=== PATIENT | male | born 1980 | race Caucasian/White ===

== ENCOUNTER 2018-06-22 22:08 | Inpatient (IN) | payer OTHER ==
[2018-06-22 22:12] VITALS: BMI 33.5
[2018-06-22] MEDS ORDERED: NITROGLYCERIN 2% OINTMENT - 1GM PACKET TD ONE (22:36)
--- NOTE | 2018-06-22 22:40 | PDOC ---
History of Present Illness - General Chief Complaint: Chest Pain Stated Complaint: CHEST PAIN Time Seen by Provider: 06/22/18 22:24 History Source: Patient - History of Present Illness Initial Comments: 06/22/18 22:36 The patient is a 38 year old Estonian speaking male with no significant reported PMH who presents to our ED tonight c/o 1 day h/o chest pain. Pain is intermittent, pressure like, and lasts 5-10 minutes. Associated with shortness of breath and L arm tingling. Denies lightheadedness, palpitations, diaphoresis. H/o of pain last year but it was less severe. No previous cardiac evaluation. H/o smoking 12-13 cigarettes daily since age 16. No known family cardiac history. Denies leg swelling, recent travel. 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 No reported family cardiac history. NKDA Surgical: circumcision Social: daily cigarettes, denies other toxic habits PMD: cannot recall name Past History - Past Medical History Allergies/Adverse Reactions: Allergies Allergy/AdvReac Type Severity Reaction Status Date / Time No Known Allergies Allergy Verified 06/22/18 22:12 Home Medications: Ambulatory Orders No Home Medications 09/14/11 COPD: No - Immunization History Immunization Up to Date: Yes - Suicide/Smoking/Psychosocial Hx Smoking Status: No Smoking History: Never smoked Years of Tobacco Use: 12 Number of Cigarettes Smoked Daily: 20 Drug/Substance Use Hx: No Substance Use Type: None Review of Systems - Review of Systems Constitutional: No: Chills, Fever HEENTM: No: Blurred Vision, Recent change in vision Respiratory: Yes: Shortness of Breath. No: Cough, Wheezing Cardiac (ROS): Yes: Chest Pain. No: Lightheadedness, Palpitations, Syncope ABD/GI: No: Constipated, Diarrhea, Nausea, Vomiting *Physical Exam - Vital Signs Last Vital Signs Temp Pulse Resp BP Pulse Ox 98.4 F 100 H 20 149/103 H 100 06/22/18 22:10 06/22/18 22:10 06/22/18 22:10 06/22/18 22:10 06/22/18 22:10 - Physical Exam General Appearance: Yes: Nourished, Appropriately Dressed HEENT: positive: Normal Voice, Hearing Grossly Normal Neck: positive: Trachea midline, Supple Respiratory/Chest: positive: Lungs Clear, Normal Breath Sounds Cardiovascular: positive: S1, S2. negative: Edema, JVD, Murmur Gastrointestinal/Abdominal: positive: Normal Bowel Sounds, Soft Musculoskeletal: negative: CVA Tenderness (R), CVA Tenderness (L) Extremity: positive: Normal Capillary Refill, Normal Inspection Integumentary: positive: Normal Color, Dry, Warm Heart Score/ECG Review - ECG Impressions Comment:: 06/22/18 22:52 NSR HR 93, no KASSIDY/STD/TWI - non-ischemic EKG ED Treatment Course - LABORATORY CBC & Chemistry Diagram: 06/22/18 23:00 06/22/18 23:00 - RADIOLOGY Radiology Studies Ordered: Category Date Time Status CHEST X-RAY PORTABLE* [RAD] Stat Radiology 06/22/18 22:34 Ordered Medical Decision Making - Medical Decision Making 06/22/18 22:42 38 year old male with chest pain. Initially tachycardic (HR 100) and hypertensive Repeat BP 131/94, HR 88. Frontal diagnosis: r/o ACS, costochondritis, MSK, esophageal spasm. 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 Will obtain Troponin, EKG, CXR, CBC/CMP. Cardiac monitoring. Reassess. 06/22/18 22:51 EKG non-ischemic as documented in EKG section of EMR Heart Score 2 06/22/18 23:49 Patient reassessed @ bedside VSS No active chest pain, resting comfortably 06/22/18 23:51 My read of CXR shows no consolidation/infiltrate, ? mild cardiomegaly, formal read pending 06/22/18 23:52 CBC, CMP unremarkable Troponin (-) x1 D-Dimer pending 06/22/18 23:57 D-Dimer negative 06/23/18 01:30 Patient counseled on importance of smoking cessation and plan of care including repeat Troponin. 06/23/18 01:45 Patient to be signed out to Dr. Trevino (Resident) and Dr. Bae (Attending) for further evaluation. Likely disposition is home. Pending Clinical Impression: Chest Pain possibly 2/2 to MSK *DC/Admit/Observation/Transfer Diagnosis at time of Disposition: Chest pain - Discharge Dispostion Disposition: HOME Condition at time of disposition: Good Decision to Admit order: No - Referrals Referrals: Cristóbal Addison MD [Staff Physician] - - Patient Instructions Printed Discharge Instructions: DI for Atypical Chest Pain Additional Instructions: You were evaluated today for your chest pain. All of your labs, a chest x-ray and an EKG showed no concerning findings. At this time you are safe for discharge home. Please make an appointment for further evaluation with your primary care doctor in the next 3 days. We have provided a referral to a primary care doctor or your can call your insurance company for a list of doctors. You can take Tylenol (up to 4000 mg daily) alternating with Motrin (up to 3200 mg daily) for your pain until you are evaluated by your primary care doctor. Return to the Emergency Department for any new/worsening/concerning symptoms including severe chest pain, shortness of breath. - Post Discharge Activity
[2018-06-22 23:23] LABS: HEMATOCRIT 44.5 % (35.4-49); HEMOGLOBIN 15.6 GM/dL (11.7-16.9); MCH 32.7 pg (25.7-33.7); MCHC 35.2 g/dl (32.0-35.9); MEAN PLT VOLUME 10.1 fl (7.5-11.1); PLATELET COUNT 268 K/MM3 (134-434); RBC 4.78 M/mm3 (4.00-5.60); RDW 13.8 % (11.9-15.9)
[2018-06-22 23:42] LABS: INR 1.09 (0.83-1.09); PROTHROMBIN TIME (PATIENT) 12.9 SEC (9.7-13.0)
[2018-06-22 23:44] LABS: ACTIVATED PTT 38.8 SECONDS (25.2-36.5)
[2018-06-22 23:48] LABS: ALBUMIN 3.8 g/dl (3.4-5.0); ALK PHOS 110 U/L (45-117); ANION GAP 5 MMOL/L (8-16); BILIRUBIN,TOTAL 0.2 mg/dL (0.2-1); BLOOD UREA NITROGEN 10 mg/dL (7-18); CALCIUM 8.4 mg/dL (8.5-10.1); CHLORIDE 104 mmol/L (98-107); CO2 28 mmol/L (21-32); CREATININE 0.7 mg/dL (0.55-1.3); GLUCOSE,RANDOM 159 mg/dL (74-106); N-TERMINAL BNP 7.7 pg/ml (5-125); POTASSIUM 4.1 mmol/L (3.5-5.1); SGOT/AST 17 U/L (15-37); SGPT/ALT 34 U/L (13-61); SODIUM 137 mmol/L (136-145); TOT PROT 7.4 g/dl (6.4-8.2)
--- NOTE | 2018-06-23 00:48 | PDOC ---
Documentation entered by José Bernabe SCRIBE, acting as scribe for Simone Rivas MD. Attending Attestation - Resident Resident Name: Blanka Mckeon - ED Attending Attestation I have performed the following: I have examined & evaluated the patient, The case was reviewed & discussed with the resident, I agree w/resident's findings & plan, Exceptions are as noted - HPI HPI: 06/22/18 23:26 Patient is a 38 year old male with no significant past medical history who presents to the ED with complaints of left sided chest pain that began 1 day ago. 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 He reports experiencing associated symptoms of left arm tingling when he has the chest pain. He denies any chest pain at this time. Had similar sxs 1 year ago that resolved. Did not seek care then. Denies a trigger for the pain. Denies associated SOB, dizziness, N/V, diaphoresis. Pt is daily smoker. Denies sig family hx cardiac disease. Denies trauma to the chest. Denies headache, focal weakness/numbness. Denies fevers, chills, coughing. Denies diarrhea, constipation. Denies dysuria, hematuria. Denies sick contacts. Allergies: None Social history: [employer] driver. Current smoker 13 cigarettes per day. No illicit drugs. No alcohol. Surgical history: None PMD: Unknown - Physicial Exam PE: 06/23/18 00:43 GENERAL: Awake, alert, and fully oriented, in no acute distress. Well appearing , sleeping comfortably in stretcher HEAD: No signs of trauma EYES: PERRLA, EOMI, sclera anicteric, conjunctiva clear ENT: Oropharynx clear without exudates. Moist mucosa NECK: Normal ROM, supple, no lymphadenopathy, JVD, or masses LUNGS: Breath sounds equal, clear to auscultation bilaterally. No wheezes, and no crackles HEART: Regular rate and rhythm, normal S1 and S2, no murmurs, rubs or gallops ABDOMEN: Soft, nontender, normoactive bowel sounds. No guarding, no rebound. No masses EXTREMITIES: Normal range of motion, no edema. No cords, erythema, or tenderness NEUROLOGICAL: Normal speech, cranial nerves intact, equal strength and sensation b/l SKIN: Warm, Dry, normal turgor, no rashes or lesions noted. - Medical Decision Making 06/23/18 00:44 38yo M with no sig PMH presents to the ED with LSCP with L arm tingling intermittently for 24hrs. Vitals initially with elevated BP but on rpt by Dr. Mckeon upon arrival, BP normalized without intervention. Exam wnl. DDx includes ACS vs PE vs PNA vs MSK pain. Pt is low risk for ACS, heart score is 2, reasonable to do tropx2 Pt is low risk for PE, but does not meet PERC criteria as HR on arrval was 100. WIll check dimer Pt has no infectious sxs concerning for PNA, but will check CXR to r/o infiltrates No CP so far while in ED, will reassess Heart Score/ECG Review - History History: Moderately suspicious - Electrocardiogram EKG: Normal - Age Age: </= 45 - Risk Factors Based on the list above the patient has:: 1-2 risk factors - Troponin Troponin: </= normal limit - Score Heart Score - Total: 2 #1 06/23/18 00:45 Twelve-lead EKG was performed and reviewed by me. Normal sinus rhythm, rate 93. Normal axis and intervals. No ST elevations or T-wave inversions. Simone Rivas MD: This documentation has been prepared by the Florecita quigley Matthew, SCRIBE, under my direction and personally reviewed by me in its entirety. I confirm that the documentation accurately reflects all work, treatment, procedures, and medical decision making performed by me.
[2018-06-23] MEDS ORDERED: ASPIRIN 325 MG TABLET PO ONE (03:23)
--- NOTE | 2018-06-23 03:27 | PDOC ---
*Physical Exam - Vital Signs Last Vital Signs Temp Pulse Resp BP Pulse Ox 98.4 F 100 H 20 149/103 H 100 06/22/18 22:10 06/22/18 22:10 06/22/18 22:10 06/22/18 22:10 06/22/18 22:10 ED Treatment Course - LABORATORY CBC & Chemistry Diagram: 06/22/18 23:00 06/22/18 23:00 - ADDITIONAL ORDERS Additional order review: Laboratory Results 06/23/18 06/22/18 06/22/18 02:30 23:44 23:00 PT with INR INR PTT (Actin FS) D-Dimer 492 Sodium 137 Potassium 4.1 Chloride 104 Carbon Dioxide 28 Anion Gap 5 L BUN 10 Creatinine 0.7 Creat Clearance w eGFR 126.21 Random Glucose 159 H Calcium 8.4 L Total Bilirubin 0.2 AST 17 ALT 34 Alkaline Phosphatase 110 Creatine Kinase 59 53 Troponin I 0.18 H < 0.02 B-Natriuretic Peptide 7.7 Total Protein 7.4 Albumin 3.8 06/22/18 23:00 PT with INR 12.90 INR 1.09 PTT (Actin FS) 38.8 H D-Dimer Sodium Potassium Chloride Carbon Dioxide Anion Gap BUN Creatinine Creat Clearance w eGFR Random Glucose Calcium Total Bilirubin AST ALT Alkaline Phosphatase Creatine Kinase Troponin I B-Natriuretic Peptide Total Protein Albumin 06/22/18 23:00 RBC 4.78 MCV 93.0 MCHC 35.2 RDW 13.8 MPV 10.1 - Medications Given in the ED: ED Medications Discontinued Medications Generic Name Dose Route Start Last Admin Trade Name Freq PRN Reason Stop Dose Admin Nitroglycerin 1 inch 06/22/18 22:36 06/22/18 22:44 Nitro-Bid 2% Paste - TD 06/22/18 22:37 1 inch ONCE ONE Administration Medical Decision Making - Medical Decision Making Patient signed out to me pending 2nd trop as first trop was negative. 2nd trop is positive at 0.12 will admit to Telemetry for chest pain. *DC/Admit/Observation/Transfer Diagnosis at time of Disposition: Chest pain, Elevated troponin I level - Discharge Dispostion Condition at time of disposition: Stable Decision to Admit order: Yes - Referrals Referrals: Cristóbal Addison MD [Staff Physician] - - Patient Instructions Printed Discharge Instructions: DI for Atypical Chest Pain, DI for Chest Pain Additional Instructions: You were evaluated today for your chest pain. All of your labs, a chest x-ray and an EKG showed no concerning findings. At this time you are safe for discharge home. Please make an appointment for further evaluation with your primary care doctor in the next 3 days. We have provided a referral to a primary care doctor or your can call your insurance company for a list of doctors. You can take Tylenol (up to 4000 mg daily) alternating with Motrin (up to 3200 mg daily) for your pain until you are evaluated by your primary care doctor. Return to the Emergency Department for any new/worsening/concerning symptoms including severe chest pain, shortness of breath. - Post Discharge Activity
[2018-06-23] MEDS ORDERED: TICAGRELOR 90 MG TABLET PO SCH ×2 (04:36→10:00)
[2018-06-23] MEDS ORDERED: ENOXAPARIN NA (PORCINE) 40 MG/0.4 ML DISP.SYRIN SQ ONE (04:36)
[2018-06-23] MEDS ORDERED: NITROGLYCERIN SUBLINGUAL 1/150 0.4 MG TAB SL PRN (04:37)
--- NOTE | 2018-06-23 04:44 | HP ---
CHIEF COMPLAINT: chest pain PCP: none currently HISTORY OF PRESENT ILLNESS: Patient is a 38 y/o M w/ no known PMHx p/w intermittent pressure-like L-sided chest pain radiating to L arm x 1 day, coming and going in 5-10 minute waves, no clear inciting factor, a/w dyspnea and tingling sensation in L arm. ROS otherwise negative. 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 Afebrile on presentation w/ HR 100 and BP 149/103 Received loading dose ASA and nitro paste in ED, pain resolved with nitro and vitals resolved to HR 80 and BP 128/93. Maintaining saturation. No complaints at time of encounter. Labs significant for glucose 159, negative 1st troponin, 2nd troponin positive to 0.18. Initial EKG showing NSR w/o abnormality , 2nd EKG currently pending. ER course was notable for: (1) initial troponin negative, 2nd troponin 0.18 (2) initial EKG benign, 2nd EKG pending (3) glucose 159 Recent Travel: none PAST MEDICAL HISTORY: As per [facility] PAST SURGICAL HISTORY: none Social History: Smoking: Daily, >20 pack-years Alcohol: no Drugs: no Family History: Allergies No Known Allergies Allergy (Verified 06/22/18 22:12) HOME MEDICATIONS: Home Medications Medication Instructions Recorded No Home Medications 09/14/11 REVIEW OF SYSTEMS as per [facility] PHYSICAL EXAMINATION Vital Signs - 24 hr 06/22/18 22:10 Temperature 98.4 F Pulse Rate 100 H Respiratory 20 Rate Blood Pressure 149/103 H O2 Sat by Pulse 100 Oximetry (%) GENERAL: A&Ox3, NAD HEENT: NC/AT, PERRLA, EOMI, MMM, anicteric, xanthelasma overlying eyes b/l NECK: Normal range of motion, supple without lymphadenopathy, JVD, or masses, + acanthosis nigricans along skin folds LUNGS: CTA b/l HEART: RRR no m/r/g ABDOMEN: +bs, soft, NT, ND MUSCULOSKELETAL: Normal range of motion at all joints. No bony deformities or tenderness. No CVA tenderness, no reproducible chest pain UPPER EXTREMITIES: 2+ pulses, warm, well-perfused. No cyanosis. No clubbing. No peripheral edema. LOWER EXTREMITIES: 2+ pulses, warm, well-perfused. No calf tenderness. No peripheral edema. NEUROLOGICAL: health insurance agent, motor, sensory systems w/o focal deficit PSYCHIATRIC: Cooperative. Good eye contact. Appropriate mood and affect. SKIN: Warm, dry, normal turgor, no rashes or lesions noted, normal capillary refill. Laboratory Results - last 24 hr 06/22/18 06/22/18 06/22/18 23:00 23:00 23:00 WBC 10.0 RBC 4.78 Hgb 15.6 Hct 44.5 MCV 93.0 MCH 32.7 MCHC 35.2 RDW 13.8 Plt Count 268 D MPV 10.1 PT with INR 12.90 INR 1.09 PTT (Actin FS) 38.8 H D-Dimer Sodium 137 Potassium 4.1 Chloride 104 Carbon Dioxide 28 Anion Gap 5 L BUN 10 Creatinine 0.7 Creat Clearance w eGFR 126.21 Random Glucose 159 H Calcium 8.4 L Total Bilirubin 0.2 AST 17 ALT 34 Alkaline Phosphatase 110 Creatine Kinase 53 Troponin I < 0.02 B-Natriuretic Peptide 7.7 Total Protein 7.4 Albumin 3.8 06/22/18 06/23/18 23:44 02:30 WBC RBC Hgb Hct MCV MCH MCHC RDW Plt Count MPV PT with INR INR PTT (Actin FS) D-Dimer 492 Sodium Potassium Chloride Carbon Dioxide Anion Gap BUN Creatinine Creat Clearance w eGFR Random Glucose Calcium Total Bilirubin AST ALT Alkaline Phosphatase Creatine Kinase 59 Troponin I 0.18 H B-Natriuretic Peptide Total Protein Albumin ASSESSMENT/PLAN: 38 y/o M w/ no known PMHx p/w intermittent pressure-like L-sided chest pain radiating to L arm x 1 day, no EKG changes as yet, positive second troponin, admitted for presumed NSTEMI. #A: -NSTEMI -probable HLD -possible DM #P: -trend troponins, EKG -cardiology consulted -lipid studies -A1c -follow BMP, Mg, Phos -ASA, Brilinta -FOBT -therapeutic dose Lovenox, can consider heparin gtt -NTG SL PRN for anginal pain -may need emergent cath if pain recurs -no IVF -cardiac diet -full code -admit to telemetry Visit type - Emergency Visit Emergency Visit: Yes ED Registration Date: 06/23/18 Care time: The patient presented to the Emergency Department on the above date and was hospitalized for further evaluation of their emergent condition. - New Patient This patient is new to me today: Yes Date on this admission: 06/23/18 - Critical Care Critical Care patient: No
[2018-06-23] MEDS ORDERED: ASPIRIN 325 MG TABLET ONE (04:46)
[2018-06-23] MEDS ORDERED: ENOXAPARIN NA (PORCINE) 100 MG/1 ML DISP.SYRIN SQ ONE (04:46)
--- NOTE | 2018-06-23 04:47 | PN ---
Teaching Attending Note Name of Resident: Regulo Richardson ATTENDING PHYSICIAN STATEMENT I saw and evaluated the patient. I reviewed the resident's note and discussed the case with the resident. I agree with the resident's findings and plan as documented. CC: chest pain SUBJECTIVE: He is a 38 Y/O M W obesity, HLD, Heavy smoker since the age of 12, no medical evaluation, sedentary life style, P/W sudden onset, severe left arm pain, accompanied with left sided chest pain, intermittent each episode lasting for couple of minutes, returning after 5-10 minutes, no aggravating, no alleviating factor. States that he has not been walking that much for months so can not give us clear ET. the episode started a 9 pm and first labs were sent at 9:30 pm. She states that the complaint resolved with the nitro paste. He complains of SOB and palpitation with out lightheadedness, n/v. Objective: Young M in no distress at this time MMM has xantelasma obses S1S2,regular, no M/G CTAB Abd:BS +, 2+ tp b/l equal EXT: warm no edema. CBCD WBC 10.0 K/mm3 (4.0-10.0) 06/22/18 23:00 RBC 4.78 M/mm3 (4.00-5.60) 06/22/18 23:00 Hgb 15.6 GM/dL (11.7-16.9) 06/22/18 23:00 Hct 44.5 % (35.4-49) 06/22/18 23:00 MCV 93.0 fl (80-96) 06/22/18 23:00 MCHC 35.2 g/dl (32.0-35.9) 06/22/18 23:00 RDW 13.8 % (11.9-15.9) 06/22/18 23:00 Plt Count 268 K/MM3 (134-434) D 06/22/18 23:00 MPV 10.1 fl (7.5-11.1) 06/22/18 23:00 CMP Sodium 137 mmol/L (136-145) 06/22/18 23:00 Potassium 4.1 mmol/L (3.5-5.1) 06/22/18 23:00 Chloride 104 mmol/L (98-107) 06/22/18 23:00 Carbon Dioxide 28 mmol/L (21-32) 06/22/18 23:00 Anion Gap 5 MMOL/L (8-16) L 06/22/18 23:00 BUN 10 mg/dL (7-18) 06/22/18 23:00 Creatinine 0.7 mg/dL (0.55-1.3) 06/22/18 23:00 Creat Clearance w eGFR 126.21 (>60) 06/22/18 23:00 Random Glucose 159 mg/dL (74-106) H 06/22/18 23:00 Calcium 8.4 mg/dL (8.5-10.1) L 06/22/18 23:00 Total Bilirubin 0.2 mg/dL (0.2-1) 06/22/18 23:00 AST 17 U/L (15-37) 06/22/18 23:00 ALT 34 U/L (13-61) 06/22/18 23:00 Alkaline Phosphatase 110 U/L (45-117) 06/22/18 23:00 Total Protein 7.4 g/dl (6.4-8.2) 06/22/18 23:00 Albumin 3.8 g/dl (3.4-5.0) 06/22/18 23:00 CARDIAC ENZYMES Creatine Kinase 59 U/L (26-308) 06/23/18 02:30 Troponin I 0.18 ng/ml (0.00-0.05) H 06/23/18 02:30 EKG reviewed: no ST changes on the 1st EKG, 2nd EKG pending ASSESSMENT AND PLAN: 38 Y/O M W multiple cardiovascular risk factors P/W episode of Left sided chest pain and shortness of breath Typical anginal chest pain in patient with RF and no baseline ET wiht positive troponin: will admit and shledon for NSTEMI at this time F/U EKG, troponin has no CP at this time Load with aspirin 162, ticagrelor, atorvastatin 80 mg F/u A1C, Lipid panel cardiology consult TTE will need cardiac cath, non urgent at this time. He was educated to inform us in case of recurrence of her chest pain HLD: will send lipid panel, start on statin. ISAIAH
[2018-06-23 08:25] LABS: BASO % 0.8 % (0-2.0); EOS % 0.9 % (0-4.5); HEMATOCRIT 44.8 % (35.4-49); HEMOGLOBIN 15.7 GM/dL (11.7-16.9); LYMPH % 24.2 % (8-40); MCH 32.2 pg (25.7-33.7); MCHC 35.1 g/dl (32.0-35.9); MEAN CELL VOLUME 91.6 fl (80-96); MEAN PLT VOLUME 9.5 fl (7.5-11.1); MONO % 6.1 % (3.8-10.2); PLATELET COUNT 255 K/MM3 (134-434); RBC 4.89 M/mm3 (4.00-5.60); RDW 13.9 % (11.9-15.9); WHITE BLOOD COUNT 8.5 K/mm3 (4.0-10.0)
[2018-06-23 08:45] LABS: ANION GAP 4 MMOL/L (8-16); BLOOD UREA NITROGEN 7 mg/dL (7-18); CALCIUM 8.7 mg/dL (8.5-10.1); CHLORIDE 106 mmol/L (98-107); CHOLESTEROL 209 mg/dL (50-200); CO2 29 mmol/L (21-32); CREATININE 0.7 mg/dL (0.55-1.3); GLUCOSE,RANDOM 117 mg/dL (74-106); HDL CHOLESTEROL 39 mg/dL (40-60); MAGNESIUM 2.2 mg/dL (1.8-2.4); PHOSPHOROUS 2.1 mg/dL (2.5-4.9); SODIUM 140 mmol/L (136-145); TRIGLYCERIDES 124 mg/dL (0-150)
[2018-06-23] MEDS ORDERED: NAPH,MB-DB/K PH,MBDB POWDER PACKET PO ONE ×2 (09:00→15:30)
--- NOTE | 2018-06-23 09:02 | CON.CARD ---
Consult Consult Specialty:: Cardiology Referred by:: Hospitalist Reason for Consultation:: Cardiac evaluation - History of Present Illness Chief Complaint: Chest pain History of Present Illness: Patient is a 38 year old male with no significant PMH who presented with intermittent mid sternal chest discomfort radiating to left arm. He complains of dyspnea and pain in the left forearm. He denies SOB or palpitations. He denies paroxysmal nocturnal dyspnea or orthopnea. He denies fever or chills. He denies nausea, vomiting, diarrhea or abdominal pain. 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 Troponin was slightly elevated to 0.18. - History Source History Provided By: Patient, Medical Record Limitations to Obtaining History: No Limitations - Smoking History Smoking history: Never smoked Aproximately how many cigarettes per day: 20 Home Medications - Allergies Allergies/Adverse Reactions: Allergies Allergy/AdvReac Type Severity Reaction Status Date / Time No Known Allergies Allergy Verified 06/22/18 22:12 - Home Medications Home Medications: Ambulatory Orders NK [No Known Home Medication] 06/23/18 Family Disease History - Family Disease History Other Family History: history of heart disease Review of Systems - Review of Systems Constitutional: denies: Chills, Fever Cardiovascular: reports: Chest Pain. denies: Palpitations, Shortness of Breath Respiratory: denies: Cough, Hemoptysis, Orthopnea, SOB, SOB on Exertion Gastrointestinal: denies: Abdominal Pain, Constipation, Diarrhea, Melena, Nausea , Rectal Bleeding, Vomiting Genitourinary: denies: Dysuria, Hematuria Musculoskeletal: denies: Back Pain, Joint Pain Neurological: denies: Dizziness, Headache, Seizure, Syncope Vital Signs: Vital Signs Temperature 98.3 F 06/23/18 07:10 Pulse Rate 76 06/23/18 07:10 Respiratory Rate 18 06/23/18 07:10 Blood Pressure 136/100 06/23/18 07:10 O2 Sat by Pulse Oximetry (%) 97 06/23/18 07:10 Eyes: Yes: PERRL HENT: Yes: Atraumatic Neck: Yes: Supple Respiratory: Yes: CTA Bilaterally Gastrointestinal: Yes: Normal Bowel Sounds, Soft. No: Tenderness Cardiovascular: Yes: Regular Rate and Rhythm JVD: No Carotid Bruit: No PMI: Non-Displaced Heart Sounds: Yes: S1, S2 Murmur: No: Systolic Murmur, Diastolic Murmur Edema: No - Other Data Labs, Other Data: CBC, BMP 06/23/18 07:57 06/23/18 07:57 INR, PTT INR 1.09 (0.83-1.09) 06/22/18 23:00 Troponin, BNP 06/22/18 06/23/18 06/23/18 23:00 02:30 07:57 Troponin I < 0.02 0.18 H 0.13 H B-Natriuretic Peptide 7.7 NSR and normal ECG Echo: Report Reviewed (Normal LV systolic function, impaired relaxation) Imaging - Results Chest X-ray: Report Reviewed (Slight increase in central marking) EKG: Report Reviewed Problem List - Problems (1) Chest pain Code(s): R07.9 - CHEST PAIN, UNSPECIFIED (2) Elevated troponin I level Code(s): R74.8 - ABNORMAL LEVELS OF OTHER SERUM ENZYMES (3) Hyperglycemia Code(s): R73.9 - HYPERGLYCEMIA, UNSPECIFIED Assessment/Plan 1. Chest pain syndrome with mild elevation of troponin suggest underlying CAD 2. Hyperglycemia 3. ? Hypercholesterolemia PLAN: 1. Troponin level noted trending down 2. Discontinue Brilinta. Continue ASA 81 mg QD 3. Add low dose beta merline as tolerated 4. Lipid panel and statin if indicated 5. Echocardiography noted 6. Consider stress echocardiography Further plans are to follow Buck Winter MD
[2018-06-23] MEDS: ASPIRIN COATED 81 MG TABLET.EC PO SCH (10:28)
--- NOTE | 2018-06-23 11:06 | EKG ---
Test Reason : Blood Pressure : / mmHG Vent. Rate : 093 BPM Atrial Rate : 093 BPM P-R Int : 136 ms QRS Dur : 098 ms QT Int : 346 ms P-R-T Axes : 044 020 046 degrees QTc Int : 430 ms NORMAL SINUS RHYTHM NORMAL ECG WHEN COMPARED WITH ECG OF 05-AUG-2009 00:55, NO SIGNIFICANT CHANGE WAS FOUND Confirmed by MD Park Edward ([id number]) on 06/23/2018 11:06:04 AM Referred By: Confirmed By:Ahsan Park MD
--- NOTE | 2018-06-23 11:09 | EKG ---
Test Reason : Blood Pressure : / mmHG Vent. Rate : 075 BPM Atrial Rate : 075 BPM P-R Int : 122 ms QRS Dur : 106 ms QT Int : 354 ms P-R-T Axes : 001 -12 053 degrees QTc Int : 395 ms NORMAL SINUS RHYTHM NONSPECIFIC T WAVE ABNORMALITY ABNORMAL ECG WHEN COMPARED WITH ECG OF 22-JUN-2018 22:09, NONSPECIFIC T WAVE ABNORMALITY NOW EVIDENT IN ANTERIOR LEADS Confirmed by MD Vivian, Ahsan ([id number]) on 06/23/2018 11:09:08 AM Referred By: Confirmed By:Ahsan Park MD
--- NOTE | 2018-06-23 11:24 | ECHO ---
Version: 1 Name: YESSY SWENSON Exam: Adult Echocardiogram Study Date: 06/23/2018, 8:14 AM Age: 38 Years MMode/2D Measurements & Calculations IVSd: 0.85 cm LVIDs: 3.7 cm LVIDd: 5.4 cm LVPWd: 0.79 cm LVOT diam: 2.00 cm Ao root diam: 2.6 cm LA dimension: 3.2 cm Doppler Measurements & Calculations MV E max yifan: 52.8 cm/sec Med E/e': 4.3 MV A max yifan: 60.7 cm/sec Med Peak E' Yifan: 12.4 cm/sec MV E/A: 0.87 Lat E/e': 4.7 Lat Peak E' Yifan: 11.2 cm/sec Ao max P.9 mmHg Ao mean P.2 mmHg Ao V2 max: 121.6 cm/sec Procedure A two-dimensional transthoracic echocardiogram with color flow and Doppler was performed. The patien t was in normal sinus rhythm during the exam. Left Ventricle The left ventricular size, thickness and function are normal. Ejection Fraction = 55. Grade I diasto lic dysfunction, (abnormal relaxation pattern). Right Ventricle The right ventricle is normal in size and function. Atria Normal left and right atrial size and function. Mitral Valve The mitral valve is grossly normal. There is trace mitral regurgitation. Tricuspid Valve The tricuspid valve is not well visualized, but is grossly normal. There is trace tricuspid regurgit ation. There was insufficient TR detected to calculate RV systolic pressure. Aortic Valve The aortic valve is trileaflet. No hemodynamically significant valvular aortic stenosis. No aortic regurgitation is present. Pulmonic Valve The pulmonic valve is not well visualized. Great Vessels The aortic root is normal size. Pericardium/Pleura There is no pericardial effusion. Summary Statements The left ventricular size, thickness and function are normal Grade I diastolic dysfunction, (abnormal relaxation pattern). There is trace mitral regurgitation. There is trace tricuspid regurgitation. There was insufficient TR detected to calculate RV systolic pressure. No hemodynamically significant valvular aortic stenosis. MD Ahsan Park 06/23/2018, 10:24 AM Ordering Physician: DARIN DAVIDSON Referring Physician: MARIO MEZA Performed By: Bita Dillard
--- NOTE | 2018-06-23 13:28 | PN ---
Physical Exam: SUBJECTIVE: Patient seen and examined at bedside this morning. He endorses resolution of his chest pain. Patient endorses drinking 5-6 cups of coffee daily ; denies energy drinks, illicit drug use. OBJECTIVE: Vital Signs Period Temp Pulse Resp BP Sys/Hauser Pulse Ox Last 24 Hr 97.5 F-98.4 F 73-100 18-20 114-149/78-103 96-100 GENERAL: The patient is awake, alert, and fully oriented, in no acute distress. HEAD: Normal with no signs of trauma. EYES: PERRL, extraocular movements intact, sclera anicteric, conjunctiva clear. No ptosis. ENT: Ears normal, nares patent, oropharynx clear without exudates, moist mucous membranes. NECK: Trachea midline, full range of motion, supple. LUNGS: Breath sounds equal, clear to auscultation bilaterally, no wheezes, no crackles, no accessory muscle use. HEART: Regular rate and rhythm, S1, S2 without murmur, rub or gallop. ABDOMEN: Soft, nontender, nondistended, normoactive bowel sounds, no guarding, no rebound, no hepatosplenomegaly, no masses. EXTREMITIES: 2+ pulses, warm, well-perfused, no edema. NEUROLOGICAL: Cranial nerves II through XII grossly intact. Normal speech, gait not observed. PSYCH: Normal mood, normal affect. SKIN: Warm, dry, normal turgor, no rashes or lesions noted Laboratory Results - last 24 hr 06/22/18 06/22/18 06/22/18 23:00 23:00 23:00 WBC 10.0 RBC 4.78 Hgb 15.6 Hct 44.5 MCV 93.0 MCH 32.7 MCHC 35.2 RDW 13.8 Plt Count 268 D MPV 10.1 Absolute Neuts (auto) Neutrophils % Lymphocytes % Monocytes % Eosinophils % Basophils % Nucleated RBC % PT with INR 12.90 INR 1.09 PTT (Actin FS) 38.8 H D-Dimer Sodium 137 Potassium 4.1 Chloride 104 Carbon Dioxide 28 Anion Gap 5 L BUN 10 Creatinine 0.7 Creat Clearance w eGFR 126.21 Random Glucose 159 H Hemoglobin A1c % Calcium 8.4 L Phosphorus Magnesium Total Bilirubin 0.2 AST 17 ALT 34 Alkaline Phosphatase 110 Creatine Kinase 53 Troponin I < 0.02 B-Natriuretic Peptide 7.7 Total Protein 7.4 Albumin 3.8 Triglycerides Cholesterol Total LDL Cholesterol HDL Cholesterol 06/22/18 06/23/18 06/23/18 23:44 02:30 07:57 WBC 8.5 RBC 4.89 Hgb 15.7 Hct 44.8 MCV 91.6 MCH 32.2 MCHC 35.1 RDW 13.9 Plt Count 255 MPV 9.5 Absolute Neuts (auto) 5.8 Neutrophils % 68.0 Lymphocytes % 24.2 Monocytes % 6.1 Eosinophils % 0.9 D Basophils % 0.8 Nucleated RBC % 0 PT with INR INR PTT (Actin FS) D-Dimer 492 Sodium Potassium Chloride Carbon Dioxide Anion Gap BUN Creatinine Creat Clearance w eGFR Random Glucose Hemoglobin A1c % Calcium Phosphorus Magnesium Total Bilirubin AST ALT Alkaline Phosphatase Creatine Kinase 59 Troponin I 0.18 H B-Natriuretic Peptide Total Protein Albumin Triglycerides Cholesterol Total LDL Cholesterol HDL Cholesterol 06/23/18 06/23/18 07:57 07:57 WBC RBC Hgb Hct MCV MCH MCHC RDW Plt Count MPV Absolute Neuts (auto) Neutrophils % Lymphocytes % Monocytes % Eosinophils % Basophils % Nucleated RBC % PT with INR INR PTT (Actin FS) D-Dimer Sodium 140 Potassium 4.0 Chloride 106 Carbon Dioxide 29 Anion Gap 4 L BUN 7 Creatinine 0.7 Creat Clearance w eGFR 126.21 Random Glucose 117 H Hemoglobin A1c % 6.1 Calcium 8.7 Phosphorus 2.1 L Magnesium 2.2 Total Bilirubin AST ALT Alkaline Phosphatase Creatine Kinase Troponin I 0.13 H B-Natriuretic Peptide Total Protein Albumin Triglycerides 124 Cholesterol 209 H Total LDL Cholesterol 150 H HDL Cholesterol 39 L Active Medications Generic Name Dose Route Start Last Admin Trade Name Freq PRN Reason Stop Dose Admin Aspirin 81 mg 06/23/18 10:00 06/23/18 10:28 Ecotrin - PO 81 mg DAILY [facility] Administration Metoprolol Succinate 25 mg 06/23/18 12:15 Toprol Xl - PO DAILY [facility] Nitroglycerin 0.4 mg 06/23/18 04:37 Nitrostat - SL Q5M PRN FOR CHEST PAIN ASSESSMENT/PLAN: Patient is a 38 year old male with no significant medical history, presents with complain of intermittent left-sided chest pain. NSTEMI -EKG upon admission shows normal sinus rhythm -Troponin peaked at 0.18 -Cardiac ECHO shows EF 55% with normal left ventricular size, thickness, function -Cardiology consult (Dr. Winter) appreciated. -Follow stress echocardiography -Aspirin 81mg PO daily -Metoprolol succinate 25mg PO daily Hyperlipidema -Lipid panel shows TG 124,LDL 150. Total cholesterol 209. -Counselled patient regarding lifestyle modifications; low fat diet, without processed goods. Encourage diet rich in vegetables, and lean proteins. Pre-Diabetes -HbA1c 6.1 -Counselled patient regarding low carbohydrate diet, without added sugars. -Patient will require close outpatient follow up. FEN -No IV fluids -Follow BMP -Cholesterol modified, sodium controlled diet. Prophylaxis - Disposition -Continue care in Telemetry floor.
--- NOTE | 2018-06-23 14:27 | PN ---
Teaching Attending Note Name of Resident: Dayo Blunt ATTENDING PHYSICIAN STATEMENT I saw and evaluated the patient. I reviewed the resident's note and discussed the case with the resident. I agree with the resident's findings and plan as documented. SUBJECTIVE:no recurrent episodes of CP or SOB. CP resolved with NTG yesterday. states hes been having increasing SOB on exertion over the past few weeks. denies CP at this time, SOb,fever, chills, cough, N/V/C/D no family hx of cardiac disease or sudden OBJECTIVE: Last Vital Signs Temp Pulse Resp BP Pulse Ox 97.9 F 73 18 130/78 99 06/23/18 10:42 06/23/18 10:42 06/23/18 10:42 06/23/18 10:42 06/23/18 10:42 General NAD CV S1 S2 RRR no murmur/rub/gallop Lungs CTA B/L No wheezing/rales/rhonchi ASSESSMENT AND PLAN: 38yo M wtih PMH Obesity and heavy smoking presents to the ER with CP radiating down the L arm 1. CP- r/o ACS. high risk factors with good story for ACS. slight troponin leak with peak at 0.18 and flat trend. EKG shows T wave flattening. was treated with lovenox/asa/brilinta in the ER. check stress echo to r/o acs. cont asa 81mg 2. HTN- newly diagnosed. will start metoprolol and titrate to optimize control.lifestyle modifications 3. Elevated LDL- counseled on lifestyle modifications. will need repeat in 3months. consider statin if remains above goal 4. Obesity- BMI 33. lifestyle modifications. pt states hard to exercise due to job. counseled on dietary changes. dietary eval 5. d/c home pending results of stress echo
--- NOTE | 2018-06-23 14:30 | ECHO ---
Name: YESSY SWENSON Exam:Exerise Stress Echocardiogram Study Date: 06/23/2018 01:07 PM Age: 38 yrs Reason For Study: LV Function Height: 71 in Weight: 240 lb BSA: 2.3 m2 Procedure Details: Exercise Stress Echocardiogram with 2D imaging. Stress Comments Normal resting electrocardiogram. A treadmill exercise test according to Lamont protocol was performed. Patient exercised for 6min Lamont reaching a maximin HR 171 bpm, which was 93% MPHR. Exercise was stop ped due to fatigue and positive ECG. There was a maximum 1mm ST segment depression. in leads II, III, V5. Left Ventricle The left ventricle is normal in size. The left ventricle is normal in structure and function. Exercise Echocardiogram At peak exercise there was LV cavity dilation and hypokinesis of the septum and apex. Interpretation Summary This was an abnormal stress echocardiogram. Exercise induced ischemic ECG changes with LV cavity dila tion and hypokinesis in the septum and apex. Results were communicated with the patients sexual abuse counsellor, Dr. Winter at 2:15PM. Reading Physician: Nico Prasad 06/23/2018 02:29 PM
[2018-06-23] MEDS: metoPROLOL SUCCINATE 25 MG TAB.SR.24H (FP) PO SCH (14:33)
--- NOTE | 2018-06-23 15:26 | DS ---
Physical Exam: SUBJECTIVE: Patient seen and examined at bedside this morning. He endorses resolution of his chest pain. Patient endorses drinking 5-6 cups of coffee daily ; denies energy drinks, illicit drug use. OBJECTIVE: Vital Signs Period Temp Pulse Resp BP Sys/Hauser Pulse Ox Last 24 Hr 97.5 F-99.2 F 73-100 18-20 114-149/72-103 96-100 PHYSICAL EXAM GENERAL: The patient is awake, alert, and fully oriented, in no acute distress. HEAD: Normocephalic, atraumatic. EYES: PERRL, extraocular movements intact, sclera anicteric, conjunctiva clear. ENT: Oropharynx clear, without erythema or exudates. Moist mucous membranes. NECK: Trachea midline, full range of motion. Supple without lymphadenopathy. LUNGS: Breath sounds equal, clear to auscultation bilaterally, no wheezes, no crackles. No accessory muscle use. HEART: Regular rate and rhythm, S1, S2 without murmur, rub or gallop. ABDOMEN: Soft, nondistended, nontender to light and deep palpation x4 quadrants , no rebound tenderness, no guarding. Normoactive bowel sounds x4 quadrants. no hepatosplenomegaly, no masses. EXTREMITIES: 2+ radial, dorsalis pedis pulses bilaterally. Warm, well-perfused. No lower extremity edema bilaterally. NEUROLOGICAL: Cranial nerves II through XII grossly intact. Normal speech. No gross focal deficits. PSYCH: Normal mood, normal affect upon my encounter. SKIN: Warm, dry. LABS Laboratory Results - last 24 hr 06/22/18 06/22/18 06/22/18 23:00 23:00 23:00 WBC 10.0 RBC 4.78 Hgb 15.6 Hct 44.5 MCV 93.0 MCH 32.7 MCHC 35.2 RDW 13.8 Plt Count 268 D MPV 10.1 Absolute Neuts (auto) Neutrophils % Lymphocytes % Monocytes % Eosinophils % Basophils % Nucleated RBC % PT with INR 12.90 INR 1.09 PTT (Actin FS) 38.8 H D-Dimer Sodium 137 Potassium 4.1 Chloride 104 Carbon Dioxide 28 Anion Gap 5 L BUN 10 Creatinine 0.7 Creat Clearance w eGFR 126.21 Random Glucose 159 H Hemoglobin A1c % Calcium 8.4 L Phosphorus Magnesium Total Bilirubin 0.2 AST 17 ALT 34 Alkaline Phosphatase 110 Creatine Kinase 53 Troponin I < 0.02 B-Natriuretic Peptide 7.7 Total Protein 7.4 Albumin 3.8 Triglycerides Cholesterol Total LDL Cholesterol HDL Cholesterol 06/22/18 06/23/18 06/23/18 23:44 02:30 07:57 WBC 8.5 RBC 4.89 Hgb 15.7 Hct 44.8 MCV 91.6 MCH 32.2 MCHC 35.1 RDW 13.9 Plt Count 255 MPV 9.5 Absolute Neuts (auto) 5.8 Neutrophils % 68.0 Lymphocytes % 24.2 Monocytes % 6.1 Eosinophils % 0.9 D Basophils % 0.8 Nucleated RBC % 0 PT with INR INR PTT (Actin FS) D-Dimer 492 Sodium Potassium Chloride Carbon Dioxide Anion Gap BUN Creatinine Creat Clearance w eGFR Random Glucose Hemoglobin A1c % Calcium Phosphorus Magnesium Total Bilirubin AST ALT Alkaline Phosphatase Creatine Kinase 59 Troponin I 0.18 H B-Natriuretic Peptide Total Protein Albumin Triglycerides Cholesterol Total LDL Cholesterol HDL Cholesterol 06/23/18 06/23/18 07:57 07:57 WBC RBC Hgb Hct MCV MCH MCHC RDW Plt Count MPV Absolute Neuts (auto) Neutrophils % Lymphocytes % Monocytes % Eosinophils % Basophils % Nucleated RBC % PT with INR INR PTT (Actin FS) D-Dimer Sodium 140 Potassium 4.0 Chloride 106 Carbon Dioxide 29 Anion Gap 4 L BUN 7 Creatinine 0.7 Creat Clearance w eGFR 126.21 Random Glucose 117 H Hemoglobin A1c % 6.1 Calcium 8.7 Phosphorus 2.1 L Magnesium 2.2 Total Bilirubin AST ALT Alkaline Phosphatase Creatine Kinase Troponin I 0.13 H B-Natriuretic Peptide Total Protein Albumin Triglycerides 124 Cholesterol 209 H Total LDL Cholesterol 150 H HDL Cholesterol 39 L HOSPITAL COURSE: Date of Admission:06/23/18 Date of Discharge: 06/23/18 Patient is a 38 year old male with no significant medical history, presents with complain of intermittent left-sided chest pain. EKG upon admission shows normal sinus rhythm with flattened T waves. Troponin peaked at 0.18. Patient was evaluated by cardiology, placed on Telemetry monitoring. Cardiac ECHO shows EF 55% with normal left ventricular size, thickness, function. Grade 1 diastolic dysfunction noted. Stress ECHO showed exercise induced ischemia in II , III, V5. LV dilation and hypokinesis of the septum and apex noted. Patient was initiated on Aspirin, Brilinta, Lipitor, Metoprolol with cardiology recommendation. Patient for transfer to [facility] for cardiac catheterization, higher level of care. Minutes to complete discharge: 32 Discharge Summary Reason For Visit: ELEVATED TROPONIN I LEVEL, CHEST PAIN Current Active Problems Chest pain (Acute) Elevated troponin I level (Acute) Hyperglycemia (Acute) Condition: Stable - Instructions Diet, Activity, Other Instructions: Hospital course: You were admitted to the hospital with chest pain. You had an echocardiogram done that showed abnormal relaxation of your heart. You had an abnormal stress test result, and are being transferred to [facility] for higher level of care. Follow the recommendations of the physicians at the Hospital. Your lipids, and blood sugar were elevated. We recommend that you increase your exercise, and manage your diet to be high in vegetables, and lean proteins. Avoid foods high in fat, sugars, or carbohydrates. Medication changes: You will begin taking Aspirin 81mg daily You will take Metoprolol 25mg daily You may need additional medications after your cardiac procedure; You will discuss further with the tank truck loader. Follow up recommendations: Follow up with your primary care provider within two- three days after hospital discharge. A referral to [facility] has been provided. You need to follow up with a tank truck loader as an out patient. A referral to Dr. Winter has been provided. Return to the nearest Emergency Department if you experience worsening symptoms , lightheadedness, dizziness, falls, loss of consciousness, fevers, chills, shortness of breath, chest pain, palpitations, abdominal pain, nausea, vomiting. Referrals: [facility] [place] [Provider Group] Buck Winter MD [Staff Physician] - Disposition: TRANSFER ACUTE CARE/OTHER HOSP - Home Medications Comprehensive Discharge Medication List: Ambulatory Orders Aspirin Coated [Ecotrin -] 81 mg PO DAILY 30 Days #30 tablet.ec 06/23/18 Metoprolol Succinate [Toprol XL -] 25 mg PO DAILY 30 Days #30 tab.sr.24h This patient is new to me today: Yes Date on this admission: 06/23/18 Emergency Visit: Yes ED Registration Date: 06/23/18 Care time: The patient presented to the Emergency Department on the above date and was hospitalized for further evaluation of their emergent condition. Critical Care patient: No - Discharge Referral Referred to [facility] No
[2018-06-23 15:29] LABS: CHOLESTEROL 217 mg/dL (50-200); HDL CHOLESTEROL 38 mg/dL (40-60); TRIGLYCERIDES 158 mg/dL (0-150)
[2018-06-23] MEDS: TICAGRELOR 90 MG TABLET PO SCH ×2 (15:34→22:04)
[2018-06-23] MEDS ORDERED: PT OWN MED DRAWER 7, Y5N ONE (21:30)
[2018-06-23] MEDS ORDERED: ATORVASTATIN CA 80 MG TABLET (FP) PO SCH (22:00)
[2018-06-24] MEDS: metoPROLOL SUCCINATE 25 MG TAB.SR.24H (FP) PO SCH (09:21)
[2018-06-24] MEDS: ASPIRIN COATED 81 MG TABLET.EC PO SCH (09:21)
[2018-06-24] MEDS: TICAGRELOR 90 MG TABLET PO SCH (09:21)
[2018-06-24 09:42] VITALS: BP 119/77; PULSE 90; TEMP 98.5
--- NOTE | 2018-06-24 10:58 | PN ---
Teaching Attending Note Name of Resident: Dayo Blunt ATTENDING PHYSICIAN STATEMENT I saw and evaluated the patient. I reviewed the resident's note and discussed the case with the resident. I agree with the resident's findings and plan as documented. SUBJECTIVE:no recurrent episodes of CP or dyspnea. denies CP, SOB, fever, chills , N/V/C/D OBJECTIVE: Last Vital Signs Temp Pulse Resp BP Pulse Ox 98.5 F 90 22 H 119/77 98 06/24/18 09:41 06/24/18 09:41 06/24/18 09:41 06/24/18 09:41 06/23/18 20:26 General NAD CV S1 S2 RRR no murmur/rub/gallop Lungs CTA B/L No wheezing/rales/rhonchi ASSESSMENT AND PLAN: 38yo M wtih PMH Obesity and heavy smoking presents to the ER with CP radiating down the L arm 1. CP- r/o ACS. +Stress echo with hypokinesis of the septum and apex. plan to transfer for cardiac cath at [facility]. cont asa 81mg 2. HTN- newly diagnosed. improved on low dose metoprolol and titrate to optimize control.lifestyle modifications 3. Elevated LDL- counseled on lifestyle modifications. will need repeat in 3months. consider statin if remains above goal 4. Obesity- BMI 33. lifestyle modifications. pt states hard to exercise due to job. counseled on dietary changes. dietary eval 5. transfer to [place] for cath
--- NOTE | 2018-06-25 15:10 | PN ---
Progress Note (short form) - Note Progress Note: LHC performed showing 80% ulcerated prox LAD lesion and 50% mid LAD, normal RCA and LCx, normal LVEF 65-70%, normal LVEDP, no aortic stenosis. s/p PTCA and implant Synergy 4.0 x 16 mm SORAYA @ 12 KEMI to prox LAD lesion. TR band placed at right radial access, no complications, patient stable for routine post-PCI care , secondary prevention of CVD and cardiac rehab referral, he will f/u in our office.
== END 2018-06-24 13:24 | disposition short-term general hospital (02) | DRG 198 ==
LOC: JER 22:08 → JERBED 06-23 03:28 → J4W 06-23 12:08
PROVIDERS: ADMIT Internal Medicine; ATTEND Internal Medicine
DX: R07.89 Other chest pain (principal); I25.10 Atherosclerotic heart disease of native coronary artery without angina pectoris; I10 Essential (primary) hypertension; F17.210 Nicotine dependence, cigarettes, uncomplicated; E66.9 Obesity, unspecified; Z68.33 Body mass index [BMI] 33.0-33.9, adult; R74.8 Abnormal levels of other serum enzymes; R73.9 Hyperglycemia, unspecified; E78.5 Hyperlipidemia, unspecified
CPT/HCPCS: 36415; 71045-TC-FY; 80048; 80053; 80061; 82550; 83036; 83721; 83735; 83880; 84100; 84484; 85025; 85027; 85379; 85610; 85730; 93005; 93010; 93306-TC; 93351; 99285-25

== ENCOUNTER 2019-01-29 13:00 | Emergency (ER) | payer OTHER ==
--- NOTE | 2019-01-29 13:11 | PDOC ---
History of Present Illness - General Chief Complaint: Blood Sugar Problem Stated Complaint: HIGH BLOOD SUGAR PROBLEM Time Seen by Provider: 01/29/19 13:07 History Source: Patient Exam Limitations: No Limitations - History of Present Illness Initial Comments: 01/29/19 13:54 38y M hx of CAD (sp 1 stent), hl, presents with cmplanit of hyperglycemia. Patient was in his usual health until yesterday when he felt a little lightheaded he checked his blood sugar using his grandma's blood glucose monitor , Found his blood sugar to be elevated to 300s, He checked his blood sugar again today and noticed it was in the 300s which came to the ER for evaluation. The patient does note that he has been more thirsty recently and urinating more frequently.. Patient endorses having one episode of nausea and vomiting yesterday that was looked like mucus, denies any current nausea or vomiting. Patient denies any current lightheadedness any associated headache, chest pain, back pain, abdominal pain, fever, chills, dysuria, diarrhea. Patient has no known history of diabetes. PMD: Dr. Aguila ROS: Constitutional - no reported Fever, Chills, HEENT: no reported vision changes, sore throat Respiratory: no reported cough, sob, hemoptysis Cardiac: +light headedness (resolved) no reported chest pain, palpitations, , leg swelling Abd/GI: + nausea, vomiting, (resolved) no reported abd pain, blood per rectum, melena, diarrhea : +frequency no reported dysuria, discharge Musculskelatal - no reported back pain, joint swelling skin - no reported bruising, erythema, rash neurological: no reported headache, numbness, focal weakness, tingling, ataxia, hematologic: no reported easy bruising, easy bleeding Physicial Exam: GENERAL: The patient is awake, alert, and fully oriented, Nontoxic - in no acute distress. HEAD: Normocephalic, atraumatic. EYES: extraocular movements intact, sclera anicteric, conjunctiva clear. ENT: Normal voice, dry mucous membranes. NECK: Normal range of motion, supple LUNGS: Breath sounds equal, clear to auscultation bilaterally. No wheezes, no rhonchi, no rales. HEART: Rslightyl tachycardicardic, normal S1 and S2 without murmur, rub or gallop. ABDOMEN: Soft, nontender, No guarding, no rebound. No CVA tenderness EXTREMITIES: Normal range of motion, no edema. NEUROLOGICAL: No facial assymetry, Normal speech, PSYCH: Normal mood, normal affect. SKIN: Warm, Dry, normal turgor, We will check the patient's lab work, rule out DKA hyperglycemia, will give the patient fluids Will reassess Past History - Past Medical History Allergies/Adverse Reactions: Allergies Allergy/AdvReac Type Severity Reaction Status Date / Time No Known Allergies Allergy Verified 01/29/19 13:02 Home Medications: Ambulatory Orders Aspirin Coated [Ecotrin -] 81 mg PO DAILY 30 Days #30 tablet.ec 06/23/18 Metoprolol Succinate [Toprol XL -] 25 mg PO DAILY 30 Days #30 tab.sr.24h Atorvastatin Ca [Lipitor] 40 mg PO HS 01/29/19 Ticagrelor [Brilinta] 90 mg PO BID 01/29/19 Cardiac Disorders: Yes ([place]) COPD: No Hypercholesterolemia: Yes - Immunization History Immunization Up to Date: Yes - Psycho Social/Smoking Cessation Hx Smoking Status: No Smoking History: Former smoker Years of Tobacco Use: 12 Have you smoked in the past 12 months: No Number of Cigarettes Smoked Daily: 20 Information on smoking cessation initiated: No 'Breaking Loose' booklet given: 06/23/18 Hx Alcohol Use: (occasional) Drug/Substance Use Hx: No Substance Use Type: None *Physical Exam - Vital Signs Last Vital Signs Temp Pulse Resp BP Pulse Ox 98.2 F 108 H 20 156/90 99 01/29/19 13:00 01/29/19 13:00 01/29/19 13:00 01/29/19 13:00 01/29/19 13:00 Heart Score/ECG Review - ECG Impressions Comment:: 01/29/19 13:59 Twelve-lead EKG was performed and reviewed by me. There is normal sinus rhythm with a normal rate. Rate of 93 The axis is normal. The intervals are normal. There is normal R wave progression There are no ST or T wave abnormalities. Impression: Normal twelve-lead EKG ED Treatment Course - LABORATORY CBC & Chemistry Diagram: 01/29/19 13:30 01/29/19 13:30 Medical Decision Making - Medical Decision Making 01/29/19 15:45 The patient's blood work was reviewed there is no true signs of DKA the patient' s bicarb is a bit low and his glucose and is in 300, But does not meet formal criteria of DKA. The patient did have some beta hydroxy butyrate that is elevated. The patient is able to tolerate oral intake his blood sugar is improved I will discharge patient to follow-up with his primary care doctor for further evaluation for diabetes 01/29/19 16:33 pt tolerating oral intake, Feels significantly improved, would prefer outpatient management. will dc to [facility] with dr. granda for follow up as outpatient. I discussed the physical exam findings, ancillary test results and final diagnoses with the patient. I answered all of the patient's questions. The patient was satisfied with the care received and felt comfortable with the discharge plan and treatment plan. The patient will call their primary care physician within 24 hours to arrange follow-up and will return to the Emergency Department with any new, persistent or worsening symptoms. Discharge - Discharge Information Problems reviewed: Yes Clinical Impression/Diagnosis: Hyperglycemia Condition: Improved Disposition: HOME - Admission No - Follow up/Referral Referrals: Finesse Aguila MD [Primary Care Provider] - - Patient Discharge Instructions Patient Printed Discharge Instructions: DI for Hyperglycemia -- Adult Additional Instructions: Regrese al departamento de emergencias inmediatamente con CUALQUIER sntoma nuevo, persistente o que empeore. Rivera nivel de azcar en la kenrick fue elevado, rosey un seguimiento con rivera mdico de atencin primaria para evaluar rivera nivel de azcar en la kenrick. Evite los alimentos, los refrescos y los jugos con almidn cobos. ========= Return to the emergency department immediately with ANY new, persistent or worsening symptoms. Your blood sugar was elevated please follow-up with your primary care doctor for evaluation of your blood sugar. Avoid white starchy foods, sodas, and juices. You MUST call and follow up with your doctor tomorrow for further evaluation of your symptoms. Results were discussed with you. Please make sure your doctor reviews the results of your emergency evaluation. Your Emergency Department visit is not complete without a follow up with your doctor. Print Language: AMHARIC - Post Discharge Activity
[2019-01-29] MEDS ORDERED: SODIUM CHLORIDE 1,000 ML IV ONE ×2 (13:13→15:36)
[2019-01-29 13:20] VITALS: BMI 34.8
[2019-01-29 13:59] LABS: BASO % 1.3 % (0-2.0); EOS % 0.6 % (0-4.5); HEMATOCRIT 47.3 % (35.4-49); HEMOGLOBIN 15.7 GM/dl (11.7-16.9); LYMPH % 30.5 % (8-40); MCH 30.7 pg (25.7-33.7); MCHC 33.1 g/dl (32.0-35.9); MEAN CELL VOLUME 92.6 fl (80-96); MEAN PLT VOLUME 11.8 fl (7.5-11.1); MONO % 5.6 % (3.8-10.2); PLATELET COUNT 284 K/MM3 (134-434); RBC 5.11 M/mm3 (4.00-5.60); RDW 12.6 % (11.9-15.9); WHITE BLOOD COUNT 9.7 K/mm3 (4.0-10.8)
[2019-01-29 14:04] LABS: ALBUMIN 4.3 g/dl (3.4-5.0); BILIRUBIN,TOTAL 1.6 mg/dl (0.2-1); CALCIUM 9.4 mg/dl (8.5-10); CREATININE 0.9 mg/dl (0.55-1.3); POTASSIUM 4.3 mmol/L (3.5-5.1); TOT PROT 7.3 g/dl (6.4-8.2)
[2019-01-29 14:12] LABS: ADD RBC MORPHOLOGY YES
[2019-01-29 14:21] LABS: PLATELET ESTIMATE ADEQUATE
[2019-01-29 15:23] LABS: VENOUS PC02 32.8 mmHg (38-52); VENOUS PH 7.32 (7.31-7.41); VENOUS PO2 79.4 mmHg (28-48)
[2019-01-29 16:36] VITALS: BP 124/72; PULSE 87; TEMP 97.8
--- NOTE | 2019-01-31 13:35 | EKG ---
Test Reason : Blood Pressure : / mmHG Vent. Rate : 093 BPM Atrial Rate : 093 BPM P-R Int : 140 ms QRS Dur : 098 ms QT Int : 362 ms P-R-T Axes : 038 003 032 degrees QTc Int : 450 ms NORMAL SINUS RHYTHM NORMAL ECG WHEN COMPARED WITH ECG OF 23-JUN-2018 05:49, NONSPECIFIC T WAVE ABNORMALITY NO LONGER EVIDENT IN ANTEROLATERAL LEADS QT HAS LENGTHENED Confirmed by MD Vivian, Ahsan ([id number]) on 01/31/2019 1:35:18 PM Referred By: PRETTY ZENDEJAS Confirmed By:Ahsan Park MD
== END 2019-01-29 17:23 | disposition home or self-care (01) ==
LOC: FER 13:00
PROC: 3E0337Z Introduction of Electrolytic and Water Balance Substance into Peripheral Vein, Percutaneous Approach (ICD-10-PCS; principal; 2019-01-29)
DX: R73.9 Hyperglycemia, unspecified (principal); I25.10 Atherosclerotic heart disease of native coronary artery without angina pectoris; I25.2 Old myocardial infarction; E78.00 Pure hypercholesterolemia, unspecified; Z95.5 Presence of coronary angioplasty implant and graft; Z79.82 Long term (current) use of aspirin; Z87.891 Personal history of nicotine dependence
CPT/HCPCS: 36415; 80053; 81003; 81015; 82010; 82550; 82803; 82962; 84484; 85025; 93005; 96360; 96361; 99284-25; J7030

== ENCOUNTER 2023-10-15 19:46 | Emergency (ER) | payer OTHER ==
[2023-10-15 20:43] LABS: HEMATOCRIT 49.8 % (35.4-49); MCH 29.3 pg (25.7-33.7); MCHC 32.1 g/dl (32.0-35.9); MEAN CELL VOLUME 91.1 fl (80-96); RBC 5.47 10^6/uL (4.00-5.60); RDW 14.5 % (11.9-15.9); WHITE BLOOD COUNT 9.6 10^3/uL (4.0-10.8)
[2023-10-15] MEDS ORDERED: KETOROLAC TROMETHAMINE 30 MG/1 ML VIAL ONE (21:07)
[2023-10-15] MEDS: KETOROLAC TROMETHAMINE 30 MG/1 ML VIAL IVPUSH ONE (21:09)
[2023-10-15] MEDS: SODIUM CHLORIDE 1,000 ML IV ONE (21:09)
[2023-10-15 21:15] LABS: ALBUMIN 4.5 g/dl (3.4-5.0); ALK PHOS 85 U/L (45-117); ANION GAP 12 mmol/L (4-13); BILIRUBIN,TOTAL 0.4 mg/dl (0.2-1); CALCIUM 10.1 mg/dl (8.5-10.1); CHLORIDE 98 mmol/L (98-107); CO2 26 mmol/L (21-32); CREATININE 0.7 mg/dl (0.6-1.3); GLUCOSE,RANDOM 102 mg/dl (74-106); POTASSIUM 4.1 mmol/L (3.5-5.1); SGOT/AST 13 U/L (15-37); SGPT/ALT 17 U/L (7-52); SODIUM 136 mmol/L (136-145); TOT PROT 7.2 g/dl (6.4-8.2)
[2023-10-15] MEDS ORDERED: PIPERACILLIN/TAZOBACTAM 4.5 GM VIAL IVPB ONE (21:33)
[2023-10-15] MEDS: PIPERACILLIN/TAZOB 4.5 GM 4.5 GM in DEXTROSE 5%-WATER 100 ML IVPB ONE (22:30)
[2023-10-16 02:21] VITALS: BP 108/73; PULSE 77; RESP 16; TEMP 98.1; BMI 30.8
== END 2023-10-15 23:09 | disposition home or self-care (01) ==
LOC: FER 19:46
PROC: 3E03329 Introduction of Other Anti-infective into Peripheral Vein, Percutaneous Approach (ICD-10-PCS; principal; 2023-10-15)
PROC: 3E03329 Introduction of Other Anti-infective into Peripheral Vein, Percutaneous Approach (ICD-10-PCS; 2023-10-15)
PROC: 3E0333Z Introduction of Anti-inflammatory into Peripheral Vein, Percutaneous Approach (ICD-10-PCS; 2023-10-15)
DX: K57.32 Diverticulitis of large intestine without perforation or abscess without bleeding (principal); R10.32 Left lower quadrant pain
CPT/HCPCS: 36415; 74176-TC; 80053; 81003; 85027; 99284-25